=== PATIENT | female | born 1985 | race Asian ===

== ENCOUNTER → 2024-12-10 | Outpatient (CLI) | payer OTHER ==
[2024-12-10 16:49] LABS: BASO # 0.06 K/mm3 (0.02-0.10); EOS # 0.23 K/mm3 (0.04-0.40); EOS % 3.1 % (1.0-5.0); HEMATOCRIT 35.5 % (37.0-47.0); HEMOGLOBIN 10.2 g/dL (12.5-16.0); MEAN CELL VOLUME 73 fl (78-100); MEAN CORPUSCULAR HEMOGLOBIN 21 pg (27-31); MEAN CORPUSCULAR HGB CONC 29 g/dL (33-37); MEAN PLATELET VOLUME 9.4 fl (7.4-10.4); MONO # 0.36 K/mm3 (0.20-0.80); NEU # 5.14 K/mm3 (1.40-6.50); PLATELET COUNT 318 K/mm3 (130-400); RED BLOOD COUNT 4.86 M/mm3 (4.10-5.30); RED CELL DISTRIBUTION WIDTH 19.8 % (11.5-14.5); WHITE BLOOD COUNT 7.5 K/mm3 (4.8-10.8)
[2024-12-10 16:57] LABS: ALBUMIN 4.6 g/dL (3.5-5.0)
[2024-12-10 16:58] LABS: CALCIUM 9.4 mg/dL (8.3-10.5)
[2024-12-10 17:01] LABS: TOTAL BILIRUBIN 0.3 mg/dL (0.2-1.2)
[2024-12-11 13:35] LABS: LUTENIZING HORMONE 5.3 mIU/mL (()); PROGESTERONE 0.1 ng/mL (())
== END ==
LOC: LAB 16:31
PROVIDERS: Family Medicine
DX: E78.5 Hyperlipidemia, unspecified (principal); I10 Essential (primary) hypertension; N91.1 Secondary amenorrhea; D50.9 Iron deficiency anemia, unspecified; R73.9 Hyperglycemia, unspecified